=== PATIENT | male | born 1975 | race Caucasian/White ===

== ENCOUNTER 2020-07-03 16:12 | Emergency (ER) | payer BC, SELFPAY ==
[2020-07-03 16:36] VITALS: BP 134/93; PULSE 112; RESP 16; TEMP 38.6; O2SAT 97
[2020-07-03 16:42] VITALS: BP 134/93; PULSE 112; RESP 16; TEMP 38.6; O2SAT 97
--- NOTE | 2020-07-03 16:57 | ED.FEVER ---
HPI - Fever General Chief Complaint: Fever Stated Complaint: fever,exposure to covid History of Present Illness HPI Narrative: this is a 45-year-old gentleman that presents with fever 101.5, patient has a cough with body aches with cough is nonproductive with no shortness of breath no for nausea vomiting no chest pain abdominal pain. The patient did not take any [id number] antipyretics for his fever. Patient has a nasal congestion, with history of hypertension. Patient denies having any COVID exposure he wears his mask at work. Related Data Home Medications Medication Instructions Recorded Confirmed amlodipine 5 mg PO DAILY 07/03/20 07/03/20 cetirizine 10 mg PO DAILY 07/03/20 07/03/20 fenofibrate 160 mg PO DAILY 07/03/20 07/03/20 gabapentin 300 mg PO TID 07/03/20 07/03/20 losartan 25 mg PO DAILY 07/03/20 07/03/20 omeprazole 20 mg PO DAILY 07/03/20 07/03/20 Allergies Allergy/AdvReac Type Severity Reaction Status Date / Time No Known Allergies Allergy Verified 07/03/20 16:43 Review of Systems Review of Systems: All systems reviewed & are unremarkable except as noted in HPI and below PMFSH Past Medical History Medical History HTN (hypertension) Exam Const: General: no acute distress Orientation/consciousness: patient oriented x3 HENMT: Head: normal to inspection Eyes: Conjunctivae: conjunctivae normal Pupils: Equal, round and reactive pupils present EOM: EOMs intact bilaterally Neck: Neck: normal visual inspection, no lymphadenopathy and no meningeal signs Chest: Chest palpation & inspection: normal inspection of the chest Resp: Effort & Inspection: normal respiratory effort Auscultation: clear to auscultation bilaterally Cardio: Rate: regular rate Rhythm: regular rhythm GI: GI Palp: Yes Soft to palpation Percussion: Yes normal to percussion : Testes: Testes normal Back/Spine/Pelvis: Back: no CVA tenderness Skin: General skin exam: normal color Rashes: no rashes Psych: Mental Status: mental status grossly normal Thought content: Yes Normal thought content present Course [employer] Physician Supervision patient here to be tested for COVID, will also test for influenza. Vital Signs Vital signs: Vital Signs Temperature 38.6 C H 07/03/20 16:36 Pulse Rate 112 H 07/03/20 16:36 Respiratory Rate 16 07/03/20 16:36 Blood Pressure 134/93 H 07/03/20 16:36 Pulse Oximetry 97 07/03/20 16:36 Temperature 38.6 C H 07/03/20 16:42 Pulse Rate 112 H 07/03/20 16:42 Respiratory Rate 16 07/03/20 16:42 Blood Pressure 134/93 H 07/03/20 16:42 Pulse Oximetry 97 07/03/20 16:42 Critical Care Time Critical Care Time Critical Care Time: No Discharge Plan Discharge Clinical Impression: Viral infection Patient Disposition: Home, Self-Care Condition: Stable Instructions: Antibiotic Form, Viral Syndrome (ED) Additional Instructions: advised patient to take Tylenol or Motrin for fever, drink plenty of fluids and remain isolated and will inform patient of COVID status. Prescriptions: No Action cetirizine 10 mg tablet 10 mg PO DAILY RF: 0 amlodipine 5 mg tablet 5 mg PO DAILY RF: 0 losartan 25 mg tablet 25 mg PO DAILY RF: 0 gabapentin 300 mg capsule 300 mg PO TID RF: 0 omeprazole 20 mg capsule,delayed release(DR/EC) 20 mg PO DAILY RF: 0 fenofibrate 160 mg tablet 160 mg PO DAILY RF: 0 Follow-up/Referrals: Sean,YAMILEX Baez [Primary Care Provider] - Time of Disposition: 17:27
--- NOTE | 2020-07-03 17:00 | PC.NURSE ---
Pt declined tylenol or ibuprofen
[2020-07-03 17:23] LABS: Influenza Control Valid (Valid)
[2020-07-03 17:37] VITALS: PULSE 108; RESP 16; O2SAT 98
[2020-07-05 18:17] LABS: SARS-CoV-2 RNA PCR Negative
== END 2020-07-03 17:35 | disposition home or self-care (01) ==
PROVIDERS: Emergency Provider Emergency Medicine; PCP Physician Assistant
DX: B34.9 Viral infection, unspecified (principal)
CPT/HCPCS: 73140; 87635; 87804; 99282; C9803; U0003

== ENCOUNTER 2021-08-10 10:01 | Outpatient (CLI) | payer BC, SELFPAY ==
--- NOTE | 2021-08-10 11:00 | NEURO_ITS ---
Impression: # Complains of pain in left foot with tender point medially. # Normal nerve conduction study except left Tarsal Tunnel Syndrome. # Normal needle/EMG exam. Nerve Conduction Studies Anti Sensory Summary Table Stim Site NR Peak (ms) P-T Amp (?V) Site1 Site2 Delta-P (ms) Dist (cm) Ant (m/s) Left Sup Fibular Anti Sensory (Ant Lat Mall) 14 cm 3.3 9.0 14 cm Ant Lat Mall 3.3 16.0 48 Left Sural Anti Sensory (Lat Mall) Calf 3.7 15.9 Calf Lat Mall 3.7 16.0 43 Motor Summary Table Stim Site NR Onset (ms) O-P Amp (mV) Site1 Site2 Delta-0 (ms) Dist (cm) Ant (m/s) Left Lateral Plantar Motor (ADM) Med Mall 4.8 1.8 Left Peroneal Motor (Vastus Med) Ankle 3.7 1.8 Popit Ankle 7.6 39.0 51 Popit 11.3 1.8 Left Tibial Motor (Abd Davis Brev) Ankle 4.1 2.8 Knee Ankle 8.6 44.0 51 Knee 12.7 2.0 F Wave Studies NR F-Lat (ms) L-R F-Lat (ms) Left Peroneal (Mrkrs) (EDB) 53.05 Left Tibial (Mrkrs) (Abd Hallucis) 54.46 EMG Side Muscle Nerve Root Ins Act Fibs Amp Dur Recrt Comment Left AntTibialis Dp Br Fibular L4-5 Nml Nml Nml Nml Nml Left Gastroc Tibial S1-2 Nml Nml Nml Nml Nml Left Fibularis Long Sup Br Fibular L5-S1 Nml Nml Nml Nml Nml Left Flex Dig Long Tibial L5-S2 Nml Nml Nml Nml Nml Left Ext Dig Brev Dp Br Fibular L5, S1 Nml Nml Nml Nml Nml MTDD
== END 2021-08-10 10:02 | disposition home or self-care (01) ==
LOC: ANHNEURO 10:04
PROVIDERS: PCP Physician Assistant; Visit Provider Physician Assistant
DX: G57.52 Tarsal tunnel syndrome, left lower limb (principal)
CPT/HCPCS: 95886; 95909

== ENCOUNTER 2024-07-06 19:01 | Emergency (ER) | payer BC, SELFPAY ==
--- NOTE | ~2024-07-06 | XR_ITS ---
EXAM: XR ankle RT min 3V DATE: 07/06/2024 19:18 HISTORY: RIGHT ankle injury. FALL. lateral malleolus swelling . COMPARISON: None available. FINDINGS: Normal mineralization. Oblique fracture of the distal right fibula at the level of the jeet nt line, with 2 mm lateral displacement. No lytic or blastic lesion. Mild scattered degenerative baptiste ges. Achilles and plantar enthesopathy. Plantar/ossification. No erosion or periosteal change. Latera l soft tissue swelling. IMPRESSION: Oblique minimally displaced distal right fibular fracture (Goode type B). Reviewed, dictated and finalized at location K. IMPRESSION: Oblique minimally displaced distal right fibular fracture (Goode ty pe B).
[2024-07-06 19:02] VITALS: BP 110/77; PULSE 67; RESP 18; TEMP 36.2; O2SAT 96
--- NOTE | 2024-07-06 19:10 | ED_ITS ---
HPI - General Adult General Chief complaint: Extremity Injury, Upper Stated complaint: Right ankle injury Source: patient Mode of arrival: ambulatory Limitations: no limitations History of Present Illness HPI narrative: 49-year-old white male missed a step walking down the stairs in the dark at home twisted his right ankle complains of swelling and pain over his lateral malleolus. Denies any numbness or tingling or pain elsewhere in his foot or above his ankle he has full range of motion but hurts to walk on it. No previous injury or any other injury otherwise he is eating drinking voiding and stooling fine talking seeing here in [place] no cough fever sore throat runny nose problems voiding or stooling any other complaints. Related Data Home Medications Medication Instructions Recorded Confirmed amlodipine 5 mg tablet 5 mg PO DAILY 07/03/20 07/06/24 cetirizine 10 mg tablet 10 mg PO DAILY 07/03/20 07/06/24 losartan 25 mg tablet 25 mg PO DAILY 07/03/20 07/06/24 omeprazole 20 mg capsule,delayed 20 mg PO DAILY 07/03/20 07/06/24 release atorvastatin 10 mg tablet 10 mg PO DAILY 07/06/24 07/06/24 blood sugar diagnostic (OneTouch 07/06/24 07/06/24 Verio test strips) blood-glucose meter (OneTouch 07/06/24 07/06/24 Verio Flex Meter) buspirone 10 mg tablet 10 mg PO DAILY 07/06/24 07/06/24 lancets 33 gauge (OneTouch Delica 07/06/24 07/06/24 Plus Lancet) metformin 750 mg tablet,extended 750 mg PO DAILY 07/06/24 07/06/24 release 24 hr tirzepatide 5 mg/0.5 mL 5 mg subcut WEEKLY 07/06/24 07/06/24 subcutaneous pen injector (Mounjaro) triamcinolone acetonide 0.1 % See Rx Instructions .Route .COMPLEX 07/06/24 07/06/24 topical cream Allergies Allergy/AdvReac Type Severity Reaction Status Date / Time No Known Allergies Allergy Verified 07/03/20 16:43 Review of Systems Review of Systems: All systems reviewed & are unremarkable except as noted in HPI and below PMFSH Past Medical History Medical History HTN (hypertension) Exam Narrative: White male patient with no apparent distress.? Head normocephalic, atraumatic.? Eyes conjunctiva pink sclera nonicteric.? Extraocular movements are intact.? ? Extremities : Right ankle swollen and tenderness around the lateral malleolus. He has full range of motion of his ankle. There is no tenderness to his foot or leg knee or hip. DP and PT pulses are +2 equal bilaterally. There is no cyanosis clubbing to his extremities? Skin is warm and dry without rashes or lesions.? Neurological patient is alert and oriented x4.? Motor and sensory grossly intact.? Gait is antalgic Course Vital Signs Vital signs: Vital Signs Temperature 36.2 C L 07/06/24 19:02 Pulse Rate 67 07/06/24 19:02 Respiratory Rate 18 07/06/24 19:02 Blood Pressure 110/77 07/06/24 19:02 Pulse Oximetry 96 07/06/24 19:02 Oxygen Delivery Room Air 07/06/24 19:02 Temperature 36.2 C L 07/06/24 19:02 Pulse Rate 67 07/06/24 19:02 Respiratory Rate 18 07/06/24 19:02 Blood Pressure 110/77 07/06/24 19:02 Pulse Oximetry 96 07/06/24 19:02 Oxygen Delivery Room Air 07/06/24 19:02 Medical Decision Making [facility] Narrative Medical decision making narrative: Patient was placed in Room # Two with his History and physical was performed. x-rays right ankle per radiologist showed Oblique minimally displaced distal right fibular fracture (Goode type B). Independent Historian: External Source Review: Differential Dx includes but not limited to: fracture dislocation Medications were Reviewed: home meds reviewed Independently Interpreted by me: x-ray right ankle show distal fibular fracture as independently interpreted by me Meds, treatment, ED course: Clarita 7.5 p..o He refused Clarita and was given Reva dol 30 mg IM.. long leg splint applied by nurse neurovascular was intact checked by me Social Situation Impacting Patients Care: Shared decision Making: Evaluation was discussed all questions were asked and answered patient agreed with the plan. He would follow up with orthopedist tomorrow in [place] take Tylenol I ibuprofen as needed for pain crutches leave the splint on nonweightbearing Discussed with Dr. DISCHARGE DIAGNOSIS: distal fibular fractures right leg DISPOSITION: discharge home CONDITION AT DISCHARGE: stable improved Vital Signs Vital Signs: Vital Signs Temperature 36.2 C L 07/06/24 19:02 Pulse Rate 67 07/06/24 19:02 Respiratory Rate 18 07/06/24 19:02 Blood Pressure 110/77 07/06/24 19:02 Pulse Oximetry 96 07/06/24 19:02 Oxygen Delivery Room Air 07/06/24 19:02 Temperature 36.2 C L 07/06/24 19:02 Pulse Rate 67 07/06/24 19:02 Respiratory Rate 18 07/06/24 19:02 Blood Pressure 110/77 07/06/24 19:02 Pulse Oximetry 96 07/06/24 19:02 Oxygen Delivery Room Air 07/06/24 19:02 Discharge Plan Discharge Clinical Impression: Closed fibular fracture Qualifiers: Encounter type: initial encounter Fibula location: distal Fracture morphology: unspecified fracture morphology Laterality: right Qualified Code(s): S82.831A - Other fracture of upper and lower end of right fibula, initial encounter for closed fracture Patient Disposition: Home, Self-Care Condition: Stable Instructions: Ankle Fracture (ED) Additional Instructions: follow-up with [place] orthopedist tomorrow morning. Use crutches do not bear weight on your right foot. Leave your right ankle in the splint Until you see the orthopedist. Take ibuprofen 200 mg 2 or 3 tablets 3 times a day and Tylenol 500 m tablets 3 times a day as needed for pain. Keep your right foot elevated as much as possible. Prescriptions: No Action cetirizine 10 mg tablet 10 mg PO DAILY amlodipine 5 mg tablet 5 mg PO DAILY losartan 25 mg tablet 25 mg PO DAILY omeprazole 20 mg capsule,delayed release(DR/EC) 20 mg PO DAILY (DME) blood-glucose meter [CaseMetrixuch Verio Flex meter] [facility] [place] MISCELLANEOUS atorvastatin 10 mg tablet 10 mg PO DAILY (DME) OneTouch Verio test strips Strip MISCELLANEOUS triamcinolone acetonide 0.1 % cream See Rx Instructions .ROUTE .COMPLEX Rx Instructions: Apply thin coat to affected area twice a day buspirone 10 mg tablet 10 mg PO DAILY metformin 750 mg tablet extended release 24 hr 750 mg PO DAILY (DME) lancets [ASSIATouch Delica Plus Lancet] 33 gauge misc MISCELLANEOUS Mounjaro 5 mg/0.5 mL pen injector 5 mg SUBCUT WEEKLY Follow-up/Referrals: Sean,YAMILEX Baez [Primary Care Provider] - Stand Alone Forms: Work/School Release IP Time of Disposition: 21:12
--- NOTE | 2024-07-06 20:44 | PC.NURSE ---
Pt refused [place]. Will self medicate at home with Tylenol. ERP aware.
[2024-07-06] MEDS: KETOROLAC 30 MG/ML VIAL (*BKC) IM (21:31)
[2024-07-06 21:37] VITALS: BP 117/79; PULSE 76; RESP 16; O2SAT 96
== END 2024-07-06 21:40 | disposition home or self-care (01) ==
PROVIDERS: Emergency Provider Emergency Medicine; PCP Physician Assistant
DX: S82.831A Other fracture of upper and lower end of right fibula, initial encounter for closed fracture (principal); I10 Essential (primary) hypertension; Z79.899 Other long term (current) drug therapy; Z79.84 Long term (current) use of oral hypoglycemic drugs; X50.0XXA Overexertion from strenuous movement or load, initial encounter
CPT/HCPCS: 29515; 73610; 96372; 99284; J1885